=== PATIENT | female | born 1945 | race Caucasian/White ===

== ENCOUNTER → 2016-12-14 | Outpatient (CLI) | payer OTHER ==
[2016-12-14 13:56] LABS: BASO ABS # 0.09 K/uL (0-0.2); COMPLETE YES; EOS % 0.8 %; HEMATOCRIT 38.5 % (37-47); IG% 0.1 %; LYMPH ABS # 1.94 K/uL (1.2-3.4); MEAN CELL VOLUME 84.8 fL (80-100); MEAN CORPUSCULAR HEMOGLOBIN 28.6 pg (25-34); MEAN CORPUSCULAR HGB CONC 33.8 g/dl (32-36); MEAN PLATELET VOLUME 10.2 fL (7.4-10.4); NEUT % 70.1 %; PLATELET COUNT 409 K/uL (130-400); RED BLOOD COUNT 4.54 M/uL (4.2-5.4)
[2016-12-14 14:02] LABS: ESTIMATED AVERAGE GLUCOSE 148 mg/dl; HA1C FLAG Normal (Normal)
[2016-12-14 14:06] LABS: ALT/SGPT 30 U/L (12-78); BLOOD UREA NITROGEN 19 mg/dl (7-18); BUN/CREATININE RATIO 25.1 (10-20); CALCIUM 9.1 mg/dl (8.5-10.1); CARBON DIOXIDE 26 mmol/L (21-32); CHLORIDE 106 mmol/L (98-107); CHOLESTEROL 138 mg/dl (0-200); CREATININE 0.75 mg/dl (0.60-1.20); GLUCOSE 115 mg/dl (70-99); POTASSIUM 4.3 mmol/L (3.5-5.1); SODIUM 141 mmol/L (136-145); TRIGLYCERIDES 154 mg/dl (0-150); VERY LOW DENSITY LIPOPROT CALC 31 mg/dl
[2016-12-14 14:16] LABS: ALB/GLOB RATIO 0.9 (0.9-2); ALKALINE PHOSPHATASE 84 U/L (45-117); AST/SGOT 23 U/L (15-37); CHOLESTEROL/HDL RATIO 2.1; HDL CHOLESTEROL 67 mg/dl; LDL CHOLESTEROL CALCULATED 40 mg/dl; TOTAL IRON BINDING CAPACITY 412 mcg/dl (250-450)
== END | disposition home or self-care (01) ==
LOC: C.LABSPEC 13:27
PROVIDERS: ATTEND Family Medicine
DX: Z00.00 Encounter for general adult medical examination without abnormal findings (principal); E11.9 Type 2 diabetes mellitus without complications; E03.9 Hypothyroidism, unspecified; I10 Essential (primary) hypertension; D50.9 Iron deficiency anemia, unspecified

== ENCOUNTER → 2017-06-18 | Outpatient (CLI) | payer OTHER ==
[2017-06-18 14:58] LABS: BASO ABS # 0.09 K/uL (0-0.2); COMPLETE YES; EOS % 1.2 %; HEMATOCRIT 37.8 % (37-47); IG% 0.2 %; LYMPH % 20.3 %; LYMPH ABS # 1.81 K/uL (1.2-3.4); MEAN CELL VOLUME 87.7 fL (80-100); MEAN CORPUSCULAR HEMOGLOBIN 30.4 pg (25-34); MEAN CORPUSCULAR HGB CONC 34.7 g/dl (32-36); MEAN PLATELET VOLUME 10.6 fL (7.4-10.4); MONO % 5.5 %; NEUT % 71.8 %; PLATELET COUNT 410 K/uL (130-400); RED BLOOD COUNT 4.31 M/uL (4.2-5.4); WHITE BLOOD COUNT 8.92 K/uL (4.8-10.8)
[2017-06-18 15:02] LABS: ALKALINE PHOSPHATASE 85 U/L (45-117); ALT/SGPT 29 U/L (12-78); AST/SGOT 21 U/L (15-37); BLOOD UREA NITROGEN 16 mg/dl (7-18); BUN/CREATININE RATIO 19.5 (10-20); CALCIUM 9.3 mg/dl (8.5-10.1); CARBON DIOXIDE 25 mmol/L (21-32); CHLORIDE 103 mmol/L (98-107); CHOLESTEROL 158 mg/dl (0-200); CHOLESTEROL/HDL RATIO 2.4; CREATININE 0.84 mg/dl (0.60-1.20); GLUCOSE 134 mg/dl (70-99); HDL CHOLESTEROL 65 mg/dl; LDL CHOLESTEROL CALCULATED 34 mg/dl; POTASSIUM 4.4 mmol/L (3.5-5.1); SODIUM 136 mmol/L (136-145); TRIGLYCERIDES 296 mg/dl (0-150); VERY LOW DENSITY LIPOPROT CALC 59 mg/dl
[2017-06-19 05:47] LABS: ESTIMATED AVERAGE GLUCOSE 148 mg/dl; HA1C FLAG Normal (Normal)
== END | disposition home or self-care (01) ==
LOC: C.LABSPEC 13:37
PROVIDERS: ATTEND Family Medicine
DX: E11.9 Type 2 diabetes mellitus without complications (principal); E03.9 Hypothyroidism, unspecified; I10 Essential (primary) hypertension

== ENCOUNTER → 2017-12-25 | Outpatient (CLI) | payer OTHER ==
[2017-12-25 14:29] LABS: BASO % 0.9 %; BASO ABS # 0.08 K/uL (0-0.2); EOS % 1.2 %; EOS ABS # 0.11 K/uL (0-0.5); HEMATOCRIT 40.9 % (37-47); HEMOGLOBIN 13.6 g/dL (12.0-16.0); IG# 0.02 K/uL (0.00-0.02); LYMPH % 18.1 %; LYMPH ABS # 1.63 K/uL (1.2-3.4); MEAN CELL VOLUME 87.8 fL (80-100); MEAN CORPUSCULAR HEMOGLOBIN 29.2 pg (25-34); MEAN CORPUSCULAR HGB CONC 33.3 g/dl (32-36); MEAN PLATELET VOLUME 10.8 fL (7.4-10.4); MONO % 5.6 %; NEUT ABS # 6.66 K/uL (1.4-6.5); PLATELET COUNT 375 K/uL (130-400); RED CELL DISTRIBUTION WIDTH CV 13.2 % (11.5-14.5); RED CELL DISTRIBUTION WIDTH SD 42.2 fL (36.4-46.3)
[2017-12-25 14:50] LABS: ALBUMIN 3.7 gm/dl (3.4-5.0); ALT/SGPT 28 U/L (12-78); AST/SGOT 22 U/L (15-37); BLOOD UREA NITROGEN 19 mg/dl (7-18); CALCIUM 9.1 mg/dl (8.5-10.1); CARBON DIOXIDE 24 mmol/L (21-32); CREATININE 0.92 mg/dl (0.60-1.20); GLUCOSE 144 mg/dl (70-99); POTASSIUM 4.4 mmol/L (3.5-5.1); SODIUM 134 mmol/L (136-145)
[2017-12-25 15:10] LABS: ALKALINE PHOSPHATASE 91 U/L (45-117); CHOLESTEROL 142 mg/dl (0-200); LDL CHOLESTEROL CALCULATED 27 mg/dl; TOTAL PROTEIN 7.9 gm/dl (6.4-8.2)
[2017-12-26 07:11] LABS: HEMOGLOBIN A1C 7.1 % (4.5-5.6)
== END | disposition home or self-care (01) ==
LOC: C.LABSPEC 13:03
PROVIDERS: ATTEND Family Medicine
DX: E11.9 Type 2 diabetes mellitus without complications (principal); E03.9 Hypothyroidism, unspecified; I10 Essential (primary) hypertension

== ENCOUNTER 2020-07-13 08:35 | Observation (INO) ==
--- NOTE | 2020-07-13 10:27 | Pre Anesthesia Assessment ---
Date of Service July 13, 2020 Pre Sedation Assessment Vital Signs Temp Pulse Resp BP Pulse Ox 07/13/20 09:12 37.3 C 43 L 16 139/52 L 96 Cardiovascular + bradycardic Respiratory normal respiratory effort, lungs clear to auscultation Pre-Sedation Airway Assessment Smoking Status: Never smoker Hx Sleep Apnea: No Short, Thick Neck: Yes Thyromental Distance: > or= 3.5 Finger Breadths Mallampati Class: III ASA: ASA3 NPO Status Date of Last Intake of Fluids: 07/12/20 Time of Last Intake of Fluids: 19:00 Date of Last Intake of Solid Food: 07/12/20 Time of Last Intake of Solid Foods: 19:00 Procedure Planning Contraindications for Sedation: none Current Medications Reviewed: Yes Notes The planned sedation has been discussed with the patient. Informed Consent was obtained. I have identified the patient, determined the appropriateness of sedation and have assessed the patient immediately prior to the procedure. All medicine(s) and interventions are by my order.
--- NOTE | 2020-07-13 10:28 | History & Physical Bridge Note ---
Date of Service July 13, 2020 History & Physical Bridge Note I have examined the patient, reviewed the History & Physical and in the interval since the performance of the History & Physical I have noted the following changes of clinical significance: no changes noted
[2020-07-13] MEDS ORDERED: fentaNYL citrate 100 MCG/2 ML VIAL ONE (10:35)
[2020-07-13] MEDS ORDERED: MIDAZOLAM HCL 5 MG/ML 1 ML VIAL ONE (10:35)
[2020-07-13] MEDS ORDERED: BUPIVACAINE 0.25% 30 ML VIAL ONE (10:38)
[2020-07-13] MEDS ORDERED: LIDOCAINE HCL 1% 20 ML VIAL ONE (10:38)
[2020-07-13] MEDS ORDERED: BACITRACIN INJ 50,000 UNIT VIAL ONE (10:39)
[2020-07-13] MEDS ORDERED: ACETAMINOPHEN 325 MG TAB PO PRN (12:26)
[2020-07-13] MEDS ORDERED: oxyCODONE/ACETAMINOPHEN 5mg/325mg TAB PO PRN (12:26)
--- NOTE | 2020-07-13 16:29 | Electrocardiogram Report ---
Test Reason : Blood Pressure : / mmHG Vent. Rate : 060 BPM Atrial Rate : 060 BPM P-R Int : 240 ms QRS Dur : 114 ms QT Int : 428 ms P-R-T Axes : 017 -61 115 degrees QTc Int : 428 ms AV dual-paced rhythm with prolonged AV conduction Abnormal ECG No previous ECGs available Confirmed by Hipolito Flores ([id number]) on 07/13/2020 4:28:34 PM Referred By: Mireya Dela Cruz Confirmed By:Hipolito Flores
[2020-07-13] MEDS: buPROPion HCl 100 MG TABLET PO SCH (20:56)
[2020-07-13] MEDS: metFORMIN HCL 500 MG TAB PO SCH (20:56)
[2020-07-14] MEDS ORDERED: LEVOTHYROXINE SODIUM 150 MCG TABLET PO SCH (06:30)
--- NOTE | 2020-07-14 07:34 | XRay Report ---
XR chest 2V PA/lateral HISTORY: Post pacemaker insertion. COMPARISON: None. FINDINGS: There is left-sided dual-chamber pacemaker. The leads appear intact. No pneumothorax. No pl eural effusions. The heart is borderline enlarged. No evidence for pulmonary edema. IMPRESSION: Status post left-sided dual-chamber pacemaker. No pneumothorax. ACT 112: Negative or not required by law. Electronically signed by: Judd Taveras M.D. 07/14/2020 7:33 AM
[2020-07-14] MEDS: buPROPion HCl 100 MG TABLET PO SCH (08:02)
[2020-07-14] MEDS: metFORMIN HCL 500 MG TAB PO SCH (08:02)
[2020-07-14] MEDS ORDERED: amLODIPine BESYLATE 5 MG TAB PO SCH (09:00)
[2020-07-14] MEDS ORDERED: LOSARTAN POTASSIUM 50 MG TAB PO SCH (09:00)
[2020-07-14] MEDS ORDERED: PANTOprazole 40 MG TAB PO SCH (09:00)
[2020-07-14] MEDS ORDERED: FERROUS SULFATE 325 MG TAB PO SCH (09:00)
[2020-07-14] MEDS ORDERED: EZETIMIBE 10 MG TABLET PO SCH (09:00)
[2020-07-14] MEDS ORDERED: ROSUVASTATIN CALCIUM 20 MG TAB PO SCH (09:00)
[2020-07-14] MEDS ORDERED: CEROVITE ADV FORMULA TAB PO SCH (09:00)
[2020-07-14] MEDS ORDERED: FLUoxetine HCL 20 MG CAP PO SCH (09:00)
--- NOTE | 2020-07-14 13:29 | Discharge Summary ---
Date of Service July 14, 2020 Admission HPI Per Admitting Provider pt admitted for elective ppm Admission Exam Per Admitting Provider aaox3, NAD NC/AT, EOMI Supple No JVD Nrl S1/S2, No murmur CTA b/l no w/r/r soft nt/nd no LE edema b/l skin intact no focal deficits Principal Diagnosis CHB s/p ppm Discharge Exam aaox3, NAD NC/AT, EOMI Supple No JVD Nrl S1/S2, No murmur CTA b/l no w/r/r soft nt/nd no LE edema b/l skin intact no focal deficits left pectoral incision intact, no hematoma mild ecchymosis Discharge Data Allergies Allergy/AdvReac Type Severity Reaction Status Date / Time No Known Allergies Allergy Verified 07/13/20 09:35 Procedures Performed Operation Date: 07/13/20 10:00 Actual Procedures p Pacer with A/V Leads (Dual) - Mireya Dela Cruz DO s Venogram, Unilateral - Mireya Dela Cruz DO s Bundle of his Recording - Mireya Dela Cruz DO Ordered Studies ECG: -[employer]ER CXR: No PTX, leads in position Pacemaker Interrogation: Normal function lead testing is stable 07/13/20 07:00 EP Lab Images for PACS ONCE Hospital Course (1) CHB (complete heart block): Pt admitted for elective ppm due to CHB. Underwent procedure without any complications monitored overnight and discharged home. Total Time Total Time Spent Total Time Spent (In Minutes): 40 Total Time Includes: Examination of the Patient, Discharge Planning, Medication Reconciliation and Other Discharge Plan Discharge Items Patient Disposition: Home - Self-Care Reason For Visit: Complete AV Block Discharge Diagnosis: CHB s/p ppm Condition on Discharge: Good Activity: As commented below Activity Comment: do not lift the left elbow over the left shoulder for 1 month Lifting: No more than 10 pounds Lifting Comment: do not lift more than 10 pounds with the left arm for 2 weeks Bathing: Keep incision dry Bathing Comment: keep dressing on and dry until wound check Driving/Machine Use: Resume 1 day after discharge Non-emergency contact: Tab Cutter Call non-emergency contact if: you have any medication questions Follow-up/Referrals: Jackson Guerra DO [Primary Care Provider] - 07/20/20 10:30 am Diet: Heart Healthy Addtl Attending Provider Instructions: device and wound check next week as scheduled try to wear a sports bra or the surgical bra for the next two weeks for healing Pending Studies at Discharge: No Stand-Alone Forms: My [facility], Smoking Cessation Medications and DC Order Prescriptions: Continued fluoxetine [Prozac] 40 mg Capsule 40 mg DAILY RF: 0 metformin 500 mg Tablet 500 mg BID RF: 0 bupropion HCl 100 mg Tablet 100 mg PO BID RF: 0 amlodipine [Norvasc] 10 mg Tablet 10 mg DAILY RF: 0 ferrous sulfate 325 mg (65 mg iron) Tablet 325 mg PO DAILY RF: 0 levothyroxine [Levoxyl] 150 mcg Tablet 150 mcg DAILY RF: 0 omeprazole 20 mg Capsule,Delayed Release(Dr/Ec) 20 mg PO DAILY RF: 0 losartan [Cozaar] 100 mg Tablet 100 mg DAILY RF: 0 Multi-Vitamin HP/Minerals Capsule 1 cap DAILY RF: 0 ezetimibe [Zetia] 10 mg Tablet 10 mg DAILY RF: 0 rosuvastatin [Crestor] 20 mg Tablet 20 mg DAILY RF: 0 Victoza 3-Stefano 0.6 mg/0.1 mL (18 mg/3 mL) Pen Injector See Rx Instructions .ROUTE .COMPLEX RF: 0 naproxen sodium [Aleve] 220 mg Capsule 220 mg BID PRN (Reason: Pain) RF: 0 Discharge Orders: Discharge Order (Routine); Ordered 07/14/20 Ordered By: Mireya Dela Cruz Admission Data Admit Date/Time: 07/13/20 11:24 Attending Provider: Mireya Dela Cruz Admit Provider: Mireya Dela Cruz Primary Care Provider: Jackson Guerra Other Interventions: Discharge Summary Assessment (RN) Last Done: 07/14/20 10:16
--- NOTE | 2020-07-14 17:37 | Operative Report (OR) ---
DATE OF OPERATION: 07/14/2020 PREOPERATIVE DIAGNOSIS: Complete heart block. POSTOPERATIVE DIAGNOSIS: Complete heart block. PROCEDURE: Dual chamber rate responsive permanent pacemaker under fluoroscopic guidance along with peripheral venogram (left bundle position), intracardiac electrogram mapping of the His bundle region. SURGEON: Mireya Dela Cruz DO. ASSISTANTS: None. ANESTHESIA: Monitored conscious sedation administered under my supervision by Heidi Santos. Start time 11:06, end time 12:25, a total of 3 mg Versed and 75 mcg of fentanyl. INTRAVENOUS FLUIDS: 45 mL. ANTIBIOTICS: 3 grams of Ancef. IV CONTRAST: 30 mL. BLOOD LOSS: 20 mL. URINE OUTPUT: Not applicable. SPECIMENS: None. FINDINGS: See below. DRAINS: None. INDICATIONS: This is a 75-year-old female with past medical history for morbid obesity, right ventricular hypokinesis, hyperlipidemia, hypertension, diabetes, hypothyroidism, iron deficiency anemia, gastroesophageal reflux disease. She was found to have high-degree AV block and was recommended a dual chamber pacemaker. CONSENT: Consent was obtained prior to the patient going into electrophysiology lab. The patient was informed of the risks, benefits and alternative to procedure. Risks include but not limited to sudden cardiac , cardiac arrhythmias, cerebrovascular accident, myocardial infarction, injury to the blood vessels, chamber of the heart, lung, bleeding, and infection. The patient understood these risks and agreed to proceed as planned. Informed consent was obtained. DESCRIPTION OF THE PROCEDURE: The patient was brought into electrophysiology lab in fasting state. She was connected to continuous cafeteria monitor. Timeout was performed to ensure patient identity and procedure correctly. The patient received prophylactic antibiotics prior to incision. She was prepped and draped over the left inflow space in normal surgical standard fashion. Monitored conscious sedation was given throughout the procedure for the patient's comfort level. [place] precautions maintained throughout the procedure. 10 mL of 1% lidocaine, bupivacaine mixture were given in the left deltopectoral groove. Incision was made in left deltopectoral groove. Due to her body habitus, peripheral venogram was performed to identify the axillary vein. Venous axillary access was obtained through a needlestick. A guidewire was inserted through without any resistance. A 7-Maltese sheath was inserted over the guidewire without any resistance. Dilator was removed and a second guidewire was inserted through the sheath to allow for retained venous access. Sheath was removed, flushed, reinserted over the dilator reinserted over one of the guidewires. The guidewire and dilator were removed. Then I initially placed the right atrial lead down into the right ventricle apex and screwed it in, so we had some backup pacing given her bradycardia and I was going to be positioned in the left bundle lead. With that in place then I placed a second 7-Maltese SafeSheath over the retained guidewire without any resistance. Guidewire and dilator removed. I then advanced the His preformed J sheath down into the right atrium over a Glidewire. The Glidewire and dilator were removed. Then, the left bundle lead was advanced through the sheath. Then with the lead in through the sheath, I did intracardiac monitoring of the His bundle and located where the His bundle was. The AH was 192 milliseconds, HV was 56 milliseconds. I marked where this His bundle was on my fluoroscopic screens with the camera in the GEE 30 degrees. Then I came down about 2 cm from that His bundle on an axis plane that would continue down through the apex of the heart and marked out on my fluoroscopic screen, so I had an idea of where I would be placing my left bundle lead. I then advanced the sheath down over into that area and in KHMER 30, I started screwing in. I did not really like the electrogram on V1. There was not much of a W, so I opted to unscrew and reposition it once. Then I began screwing it in again with a series of few turns causing each time to monitor the QRS morphology and how the knot progressed out to the right of the complex in addition to measuring in V5 and V6 pacing stim to the QRS peak and seeing how also my impedance drops. The lead did screw in a little bit pointing down, but ultimately had a pretty acceptable electrogram and I gave an contrast through the sheath to see that basically right portion of even the ring was in the septum. I then slit the His sheath under fluoroscopic guidance. Then I unscrewed the right atrial lead that was in the right ventricular apex for backup pacing and I positioned that into the right atrial appendage under fluoroscopic guidance. There was adequate pacing and sensing thresholds and no diaphragmatic stimulation with high output pacing. The 7-Maltese sheath over the right atrial lead was then slit and the lead was fixated to pectoralis muscle using 0 silk suture. I then split the 7-Maltese sheath over the left bundle lead and then the left bundle lead was fixated to pectoralis muscle using 0 silk suture. A pacemaker pocket was created using blunt dissection over the pectoralis muscle within the pectoral fascia. Pocket was flushed with copious amounts of bacitracin saline wash and inspected for hemostasis. Pulse generator was then attached to the leads making sure the pins were in appropriate position, passed set screw and set screws were all tightened. Pulse generator was then placed in the pocket, making sure the leads were lying flat beneath the device and the Tyrx pouch was also placed in the pocket and then the incision was closed in 3-layer fashion with 2-0 Vicryl interrupted suture followed by 3-0 Vicryl interrupted suture, followed by 4-0 Monocryl running stitch and Dermabond was applied followed by a Telfa and micropore dressing. EQUIPMENT: 1. The pulse generator is a [facility] [employer] XT DR ROBERTO Littlejohn [id number], serial number [id number]. 2. The Tyrx pouch is reference [id number], lot number [id number], expiration 04/16/2021. 3. Right atrial lead Medtronic 5076-52 cm, serial number [id number]. 4. Left bundle lead is Medtronic 3830-69 cm, serial number [id number]. INTRAOPERATIVE TESTIN. Right atrial lead: P-wave 3.2 millivolts, impedance 605 ohms, threshold 0.8 volts at 0.4 milliseconds. 2. Left bundle lead: R-wave 6.8 millivolts, impedance 1115 ohms, threshold 0.5 volts at 0.4 milliseconds. FINAL MEASUREMENTS THROUGH THE DEVICE: 1. Right atrial lead P waves 1 millivolt, impedance 513 ohms, threshold 1 volt at 0.4 milliseconds. 2. Left bundle lead R waves 13 millivolts, impedance 931 ohms, threshold 0.5 volts at 0.4 milliseconds. FINAL PARAMETERS: DDDR 60/130, right atrial amplitude 3.5 volts, pulse width 0.4 milliseconds, sensitivity 0.3 millivolts. Right ventricular amplitude 3.5 volts, pulse width 0.4 milliseconds, sensitivity 1.2 millivolts. IMPRESSION: Successful implantation of a dual chamber rate responsive permanent pacemaker under fluoroscopic guidance along with peripheral venogram and intracardiac electrogram mapping of the His bundle region secondary to complete heart block. PLAN: Monitor patient overnight, 12-lead ECG, chest x-ray. She cannot lift the left elbow or left shoulder for 1 month. She cannot lift more than 10 pounds with the left arm for 2 weeks. She is to leave the dressing on and dry until her wound check next week. She is promoted to wear a surgical bra or sports bra to help with the healing. I attest to the content of the Intraoperative Record and any orders documented therein. Any exception s are noted below.
== END 2020-07-14 10:32 | disposition home or self-care (01) ==
LOC: 2S 08:35 → EP 08:35 → 2S 20:42